=== PATIENT | male | born 1960 ===

== ENCOUNTER 2018-04-15 12:30 | Day surgery (SDC) | payer OTHER | END 2018-04-15 22:39 | disposition home or self-care (01) | LOC: WOUND 12:30 | DX: T24.232A Burn of second degree of left lower leg, initial encounter (principal) | CPT/HCPCS: G0463 ==

== ENCOUNTER 2018-04-30 00:54 | Day surgery (SDC) | payer OTHER | END 2018-04-30 22:42 | disposition home or self-care (01) | LOC: WOUND 00:54 | DX: T24.232D Burn of second degree of left lower leg, subsequent encounter (principal) ==

== ENCOUNTER 2018-05-09 15:15 | Day surgery (SDC) | payer OTHER | END 2018-05-09 22:57 | disposition home or self-care (01) | LOC: WOUND 15:15 | DX: T24.232D Burn of second degree of left lower leg, subsequent encounter (principal) | CPT/HCPCS: G0463 ==

== ENCOUNTER 2018-05-14 14:50 | Day surgery (SDC) | payer OTHER | END 2018-05-14 22:51 | disposition home or self-care (01) | LOC: WOUND 14:50 | DX: T24.232D Burn of second degree of left lower leg, subsequent encounter (principal) ==

== ENCOUNTER 2018-05-21 14:15 | Day surgery (SDC) | payer OTHER | END 2018-05-21 22:46 | disposition home or self-care (01) | LOC: WOUND 14:15 | DX: Z48.00 Encounter for change or removal of nonsurgical wound dressing (principal); T24.232D Burn of second degree of left lower leg, subsequent encounter | CPT/HCPCS: G0463 ==

== ENCOUNTER 2018-05-28 00:39 | Day surgery (SDC) | payer OTHER | END 2018-05-28 22:41 | disposition home or self-care (01) | LOC: WOUND 00:39 | DX: T24.232D Burn of second degree of left lower leg, subsequent encounter (principal) ==

== ENCOUNTER 2018-06-11 14:10 | Day surgery (SDC) | payer OTHER | END 2018-06-11 22:47 | disposition home or self-care (01) | LOC: WOUND 14:10 | DX: T24.232D Burn of second degree of left lower leg, subsequent encounter (principal) | CPT/HCPCS: G0463 ==

== ENCOUNTER 2018-06-25 00:21 | Day surgery (SDC) | payer OTHER | END 2018-06-25 22:41 | disposition home or self-care (01) | LOC: WOUND 00:21 | DX: T24.232D Burn of second degree of left lower leg, subsequent encounter (principal) | CPT/HCPCS: G0463 ==

== ENCOUNTER 2018-08-21 08:00 | Day surgery (SDC) | payer OTHER | END 2018-08-22 22:56 | disposition home or self-care (01) | LOC: WOUND 08:00 | DX: T24.332A Burn of third degree of left lower leg, initial encounter (principal); I10 Essential (primary) hypertension; M10.9 Gout, unspecified | CPT/HCPCS: G0463 ==

== ENCOUNTER 2019-08-22 00:26 | Day surgery (SDC) | payer OTHER | END 2019-08-22 23:03 | disposition home or self-care (01) | LOC: WOUND 00:26 | DX: L97.822 Non-pressure chronic ulcer of other part of left lower leg with fat layer exposed (principal); T24.23 Burn of second degree of lower leg | CPT/HCPCS: G0463 ==

== ENCOUNTER 2019-08-28 00:19 | Day surgery (SDC) | payer OTHER | END 2019-08-28 23:52 | disposition home or self-care (01) | LOC: WOUND 00:19 | DX: L97.822 Non-pressure chronic ulcer of other part of left lower leg with fat layer exposed (principal); T24.23 Burn of second degree of lower leg | CPT/HCPCS: G0463 ==

== ENCOUNTER 2019-09-19 00:29 | Day surgery (SDC) | payer OTHER | END 2019-09-19 23:26 | disposition home or self-care (01) | LOC: WOUND 00:29 | DX: L97.822 Non-pressure chronic ulcer of other part of left lower leg with fat layer exposed (principal); T24.23 Burn of second degree of lower leg; X01 Exposure to uncontrolled fire, not in building or structure | CPT/HCPCS: G0463 ==

== ENCOUNTER 2019-09-26 00:44 | Day surgery (SDC) | payer OTHER | END 2019-09-26 23:47 | disposition home or self-care (01) | LOC: WOUND 00:44 | DX: L97.822 Non-pressure chronic ulcer of other part of left lower leg with fat layer exposed (principal); T24.23 Burn of second degree of lower leg; X58.XXXS Exposure to other specified factors, sequela; I10 Essential (primary) hypertension ==

== ENCOUNTER 2019-10-22 05:56 | Day surgery (SDC) | payer OTHER ==
[~2019-10-22] VITALS: Ht 165.1 cm; Wt 94.9 kg
[~2019-10-22 05:56] MED LIST: LISI20 PO
--- NOTE | 2019-10-22 06:55 | NUR ---
History, Chart, Medications and Allergies reviewed before start of procedure. Lungs clear T/O to Auscultation. Patient confirms NPO status and agrees with scheduled surgery. Pre-Op teaching done. Pt verbalizes understanding. Patient reports completing Chlorhexadine shower X2 prior to admission to hospital.
--- NOTE | 2019-10-22 09:09 | NUR ---
History, Chart, Medications and Allergies reviewed before start of procedure. Lungs clear T/O to Auscultation. Patient confirms NPO status and agrees with scheduled surgery. Pre-Op teaching done. Pt verbalizes understanding. Patient States Post-Procedure ride home has been arranged. Patient reports completing Chlorhexadine shower X2 prior to admission to hospital.
--- NOTE | 2019-10-22 10:47 | NUR ---
Patient up to Ambulate independently. Gait steady. Discharge instructions reviewed with patient AND PT'S . Patient verbalizes understanding. Copy given to patient to take home. Discharged via wheelchair to private car for ride home.
--- NOTE | 2019-10-23 16:38 | NUR ---
10/23/19 1638 Anette Horan VERIFICATIONS: EDIT CHART.
== END 2019-10-22 22:56 | disposition home or self-care (01) ==
LOC: ORSCMMR 05:56 → ORD 07:30 → ORSCMMR 22:56
PROVIDERS: Surgery
PROC: 0HBLXZZ Excision of Left Lower Leg Skin, External Approach (ICD-10-PCS; principal; 2019-10-22 07:30)
DX: S81.801A Unspecified open wound, right lower leg, initial encounter (principal); T24.232A Burn of second degree of left lower leg, initial encounter; I10 Essential (primary) hypertension; Z79.899 Other long term (current) drug therapy; E66.9 Obesity, unspecified; Z68.34 Body mass index [BMI] 34.0-34.9, adult
CPT/HCPCS: A9270-GY; J0690; J2250; J2405; J3010; J7120